=== PATIENT | female | born 1945 | race Caucasian/White ===

== ENCOUNTER 2016-09-26 12:06 | Emergency (ER) | payer MEDICARE ==
[2016-09-26] MEDS ORDERED: GLYCERIN ADULT SUPP As Ordered ONE (13:30)
[2016-09-26] MEDS ORDERED: MAGNESIUM CITRATE 300 ML BTL As Ordered ONE (13:30)
--- NOTE | 2016-09-26 13:37 | EDDOCDS ---
Nurse's Notes [facility] Name: Pennie Ward Age: 70 yrs Sex: Female : 1945 Arrival Date: 09/26/2016 Time: 12:06 Bed TR7 Private MD: Jenniffer Mullins PA-C Diagnosis: Constipation Presentation: 09/26 12:16 Presenting complaint: Patient states: c/o constipation, reports similar history. denies ead abdominal pain. Adult Sepsis Screening: The patient does not have new or worsening altered mentation. Patient's respiratory rate is less than 22. Systolic blood pressure is greater than 100. Patient has a qSOFA score of 0- Negative Sepsis Screen. Suicide/Homicide risk assessment- the patient denies having any suicidal and/or homicidal ideations and does not present with any other emotional, behavioral or mental health complaints. Status: Patient is not a environmental services specialist or dependent. Transition of care: patient was not received from another setting of care. 12:16 Acuity: MARGARITA Level 3 ead 12:16 Method Of Arrival: Walkin/Carried/Asstd ead Triage Assessment: 12:19 General: Appears in no apparent distress, comfortable, Behavior is appropriate for age, ead cooperative. Pain: Denies pain. GI: Reports constipation, Denies nausea, vomiting, pain. Derm: Skin is pink, warm & dry. Historical: - Allergies: no known allergies; - Home Meds: 1. Lipitor 20 mg Oral tab once daily 2. paroxetine HCl 37.5 mg Oral Tb24 once daily 3. pometate 15,000 daily 4. Vitamin C Unknown Oral daily 5. vitamin c & d daily - PMHx: Hypercholesterolemia; - PSHx: none; - Social history: Smoking status: Patient states was never smoker of tobacco. No barriers to communication noted, The patient speaks fluent Czech, Speaks appropriately for age. - Family history: Not pertinent. - : The pt / caregiver states he / she is not on anticoagulants. Home medication list is obtained from the patient. - Exposure Risk Screening:: None identified. Screenin:34 Screening information is obtained from the patient. Fall risk: No risks identified. rs3 Assistance ADL's: requires no assistance with activities of daily living. Abuse/DV Screen: The patient / caregiver reports he/she is: not in a situation that causes fear, pain or injury. Nutritional screening: No deficits noted. Advance Directives: Currently, there is no health care proxy. There is no active DNR order. home support is adequate. Assessment: 13:34 General: Appears in no apparent distress, Behavior is appropriate for age, cooperative. rs3 Pain: Denies pain. Neurological: Level of Consciousness is awake, alert. Cardiovascular: Capillary refill < 3 seconds Heart tones S1 S2 present. Respiratory: Airway is patent Respiratory effort is even, unlabored, Breath sounds are clear bilaterally. Derm: Skin is pink, warm & dry. Vital Signs: 12:07 BP 173 / 86; Pulse 68; Resp 18 S; Temp 97.1; Pulse Ox 100% on R/A; Weight 44 kg (R); dd6 Height 5 ft. 1 in. (154.94 cm) (R); 12:07 Body Mass Index 18.33 (44.00 kg, 154.94 cm) dd6 Vitals: 12:07 Log In Time: September 26, 2016 at 12:05. dd6 ED Course: 12:07 Patient visited by Tien Grimaldo PCA. dd6 12:07 Jenniffer Mullins is Private Physician. dd6 12:07 Patient moved to Waiting dd6 12:09 Patient moved to Pre RCE dd6 12:17 Triage Initiated ead 12:43 Patient moved to Triage 2 ead 12:46 Patient visited by Ese Dennis RN. ead 13:12 Richard Helm PA is PHCP. btw 13:12 Leroy Gardiner DO is Attending Physician. btw 13:12 Patient visited by Richard Helm PA. btw 13:22 Jenniffer Mullins is Referral Physician. btw 13:32 Patient moved to TR7 ar3 13:36 The patient / caregiver is instructed regarding the plan of care and ED course. rs3 13:36 No IV's were initiated during this patient's visit. No procedures done that require rs3 assistance. Administered Medications: 13:33 Drug: Glycerin (Adult) 2 supp [glycerin (adult) rectal suppository (2 supp)] Route: OK; rs3 13:33 Drug: Magnesium Citrate 300 ml [magnesium citrate oral solution (300 mL)] Route: PO; rs3 Order Results: There are currently no results for this order. Outcome: 13:23 Discharge ordered by Provider. btw 13:35 Discharge Assessment: patient administered narcotics - no. The following High Risk rs3 Discharge criteria are identified: None. Discharged to home with family. Condition: stable. Discharge instructions given to patient, Instructed on discharge instructions, follow up and referral plans. medication usage, Demonstrated understanding of instructions, medications, Pt was receptive of discharge instructions/ teaching. No special radiology studies were completed. Admission hand-off:. Property :Personal belongings accompany Pt. 13:36 Patient left the ED. rs3 Signatures: Tien Grimaldo, FILLING MIXER FILLING MIXER dd6 Stella HardinRN RN rs3 Eliane Saleh, FILLING MIXER FILLING MIXER ar3 Richard Helm PA PA btw Ese Dennis,RN RN gavinod IVANA
--- NOTE | 2016-09-26 13:37 | EDDOCDS ---
Physician Documentation [facility] Name: Pennie Ward Age: 70 yrs Sex: Female : 1945 Arrival Date: 09/26/2016 Time: 12:06 Bed TR7 Private MD: Jenniffer Mullins PA-C Disposition: 09/26/16 13:23 Discharged to Home/Self Care. Impression: Constipation. - Condition is Stable. - Discharge Instructions: High-Fiber Diet, Constipation, Adult, [id number]. - Medication Reconciliation, Local Pharmacy Hours form. - Follow up: Jenniffer Mullins; When: Call to arrange an appointment; Reason: Further diagnostic work-up, Recheck today's complaints, Continuance of care. - Problem is new. - Symptoms are unchanged. Historical: - Allergies: no known allergies; - Home Meds: 1. Lipitor 20 mg Oral tab once daily 2. paroxetine HCl 37.5 mg Oral Tb24 once daily 3. pometate 15,000 daily 4. Vitamin C Unknown Oral daily 5. vitamin c & d daily - PMHx: Hypercholesterolemia; - PSHx: none; - Social history: Smoking status: Patient states was never smoker of tobacco. No barriers to communication noted, The patient speaks fluent Citizen Of [place], Speaks appropriately for age. - Family history: Not pertinent. - : The pt / caregiver states he / she is not on anticoagulants. Home medication list is obtained from the patient. - Exposure Risk Screening:: None identified. Vital Signs: 09/26 12:07 BP 173 / 86; Pulse 68; Resp 18 S; Temp 97.1; Pulse Ox 100% on R/A; Weight 44 kg / 97 dd6 lbs (R); Height 5 ft. 1 in. (154.94 cm) (R); 12:07 Body Mass Index 18.33 (44.00 kg, 154.94 cm) dd6 MDM: 13:22 Glycerin (Adult) Suppository 2 supp VT once; To be used 10 minutes apart at home btw ordered. 13:22 Magnesium Citrate Liquid 300 ml PO once; Dispense home with pt. ordered. btw 13:34 Financial registration complete. pm4 Administered Medications: 13:33 Drug: Glycerin (Adult) 2 supp [glycerin (adult) rectal suppository (2 supp)] Route: VT; rs3 13:33 Drug: Magnesium Citrate 300 ml [magnesium citrate oral solution (300 mL)] Route: PO; rs3 Signatures: Stella Hardin RN RN rs3 Richard Helm PA PA btw Dunaway, Emily, RN RN ead Maikel Marina, Reg Reg pm4 MTDD
--- NOTE | 2016-09-28 14:37 | EDDOCDS ---
Physician Documentation [facility] Name: Pennie Ward Age: 70 yrs Sex: Female : 1945 Arrival Date: 09/26/2016 Time: 12:06 Bed TR7 Private MD: Jenniffer Mullins PA-C Disposition: 09/26/16 13:23 Discharged to Home/Self Care. Impression: Constipation. - Condition is Stable. - Discharge Instructions: High-Fiber Diet, Constipation, Adult, [id number]. - Medication Reconciliation, Local Pharmacy Hours form. - Follow up: Jenniffer Mullins; When: Call to arrange an appointment; Reason: Further diagnostic work-up, Recheck today's complaints, Continuance of care. - Problem is new. - Symptoms are unchanged. Historical: - Allergies: no known allergies; - Home Meds: 1. Lipitor 20 mg Oral tab once daily 2. paroxetine HCl 37.5 mg Oral Tb24 once daily 3. pometate 15,000 daily 4. Vitamin C Unknown Oral daily 5. vitamin c & d daily - PMHx: Hypercholesterolemia; - PSHx: none; - Social history: Smoking status: Patient states was never smoker of tobacco. No barriers to communication noted, The patient speaks fluent Northern Irish, Speaks appropriately for age. - Family history: Not pertinent. - : The pt / caregiver states he / she is not on anticoagulants. Home medication list is obtained from the patient. - Exposure Risk Screening:: None identified. Vital Signs: 09/26 12:07 BP 173 / 86; Pulse 68; Resp 18 S; Temp 97.1; Pulse Ox 100% on R/A; Weight 44 kg / 97 dd6 lbs (R); Height 5 ft. 1 in. (154.94 cm) (R); 12:07 Body Mass Index 18.33 (44.00 kg, 154.94 cm) dd6 MDM: 13:22 Glycerin (Adult) Suppository 2 supp NE once; To be used 10 minutes apart at home btw ordered. 13:22 Magnesium Citrate Liquid 300 ml PO once; Dispense home with pt. ordered. btw 13:34 Financial registration complete. pm4 13:55 [facility] Payment Agreement was scanned into [employer] and attached to record. mm15 09/27 08:03 T-Sheet-- Draft Copy was scanned into [employer] and attached to record. gb Administered Medications: 09/26 13:33 Drug: Glycerin (Adult) 2 supp [glycerin (adult) rectal suppository (2 supp)] Route: NE; rs3 13:33 Drug: Magnesium Citrate 300 ml [magnesium citrate oral solution (300 mL)] Route: PO; rs3 Signatures: Aster Sampson, Reg Reg gb Stella Hardin RN RN rs3 Richard Helm PA PA btw McGrath, Marlynn mm15 Ese Dennis RN RN ead Maikel Marina, Reg Reg pm4 The chart was reviewed and I authenticate all verbal orders and agree with the evaluation and treatment provided.Attachments: 13:55 [facility] Payment Agreement mm15 09/27 08:03 T-Sheet-- Draft Copy gb Chart Complete MTDD
--- NOTE | 2016-09-28 14:37 | EDDOCDS ---
Physician Documentation [facility] Name: Pennie Ward Age: 70 yrs Sex: Female : 1945 Arrival Date: 09/26/2016 Time: 12:06 Bed TR7 Private MD: Jenniffer Mullins PA-C Disposition: 09/26/16 13:23 Discharged to Home/Self Care. Impression: Constipation. - Condition is Stable. - Discharge Instructions: High-Fiber Diet, Constipation, Adult, [id number]. - Medication Reconciliation, Local Pharmacy Hours form. - Follow up: Jenniffer Mullins; When: Call to arrange an appointment; Reason: Further diagnostic work-up, Recheck today's complaints, Continuance of care. - Problem is new. - Symptoms are unchanged. Historical: - Allergies: no known allergies; - Home Meds: 1. Lipitor 20 mg Oral tab once daily 2. paroxetine HCl 37.5 mg Oral Tb24 once daily 3. pometate 15,000 daily 4. Vitamin C Unknown Oral daily 5. vitamin c & d daily - PMHx: Hypercholesterolemia; - PSHx: none; - Social history: Smoking status: Patient states was never smoker of tobacco. No barriers to communication noted, The patient speaks fluent Panamanian, Speaks appropriately for age. - Family history: Not pertinent. - : The pt / caregiver states he / she is not on anticoagulants. Home medication list is obtained from the patient. - Exposure Risk Screening:: None identified. Vital Signs: 09/26 12:07 BP 173 / 86; Pulse 68; Resp 18 S; Temp 97.1; Pulse Ox 100% on R/A; Weight 44 kg / 97 dd6 lbs (R); Height 5 ft. 1 in. (154.94 cm) (R); 12:07 Body Mass Index 18.33 (44.00 kg, 154.94 cm) dd6 MDM: 13:22 Glycerin (Adult) Suppository 2 supp W[place] once; To be used 10 minutes apart at home btw ordered. 13:22 Magnesium Citrate Liquid 300 ml PO once; Dispense home with pt. ordered. btw 13:34 Financial registration complete. pm4 13:55 [facility] Payment Agreement was scanned into flo[employer]do and attached to record. mm15 09/27 08:03 T-Sheet-- Draft Copy was scanned into flo[employer]do and attached to record. gb Administered Medications: 09/26 13:33 Drug: Glycerin (Adult) 2 supp [glycerin (adult) rectal suppository (2 supp)] Route: [place]; rs3 13:33 Drug: Magnesium Citrate 300 ml [magnesium citrate oral solution (300 mL)] Route: PO; rs3 Signatures: Aster Sampson, Reg Reg gb Stella Hardin RN RN rs3 Richard Helm PA PA btw McGrath, Marlynn mm15 Ese Dennis RN RN ead Maikel Marina, Reg Reg pm4 The chart was reviewed and I authenticate all verbal orders and agree with the evaluation and treatment provided.Attachments: 13:55 [facility] Payment Agreement mm15 09/27 08:03 T-Sheet-- Draft Copy gb Chart Complete MTDD
--- NOTE | 2016-09-28 14:37 | EDDOCDS ---
Nurse's Notes [facility] Name: Pennie Ward Age: 70 yrs Sex: Female : 1945 Arrival Date: 09/26/2016 Time: 12:06 Bed TR7 Private MD: Jenniffer Mullins PA-C Diagnosis: Constipation Presentation: 09/26 12:16 Presenting complaint: Patient states: c/o constipation, reports similar history. denies ead abdominal pain. Adult Sepsis Screening: The patient does not have new or worsening altered mentation. Patient's respiratory rate is less than 22. Systolic blood pressure is greater than 100. Patient has a qSOFA score of 0- Negative Sepsis Screen. Suicide/Homicide risk assessment- the patient denies having any suicidal and/or homicidal ideations and does not present with any other emotional, behavioral or mental health complaints. Status: Patient is not a ambulatory services representative or dependent. Transition of care: patient was not received from another setting of care. 12:16 Acuity: MARGARITA Level 3 ead 12:16 Method Of Arrival: Walkin/Carried/Asstd ead Triage Assessment: 12:19 General: Appears in no apparent distress, comfortable, Behavior is appropriate for age, ead cooperative. Pain: Denies pain. GI: Reports constipation, Denies nausea, vomiting, pain. Derm: Skin is pink, warm & dry. Historical: - Allergies: no known allergies; - Home Meds: 1. Lipitor 20 mg Oral tab once daily 2. paroxetine HCl 37.5 mg Oral Tb24 once daily 3. pometate 15,000 daily 4. Vitamin C Unknown Oral daily 5. vitamin c & d daily - PMHx: Hypercholesterolemia; - PSHx: none; - Social history: Smoking status: Patient states was never smoker of tobacco. No barriers to communication noted, The patient speaks fluent Telugu, Speaks appropriately for age. - Family history: Not pertinent. - : The pt / caregiver states he / she is not on anticoagulants. Home medication list is obtained from the patient. - Exposure Risk Screening:: None identified. Screenin:34 Screening information is obtained from the patient. Fall risk: No risks identified. rs3 Assistance ADL's: requires no assistance with activities of daily living. Abuse/DV Screen: The patient / caregiver reports he/she is: not in a situation that causes fear, pain or injury. Nutritional screening: No deficits noted. Advance Directives: Currently, there is no health care proxy. There is no active DNR order. home support is adequate. Assessment: 13:34 General: Appears in no apparent distress, Behavior is appropriate for age, cooperative. rs3 Pain: Denies pain. Neurological: Level of Consciousness is awake, alert. Cardiovascular: Capillary refill < 3 seconds Heart tones S1 S2 present. Respiratory: Airway is patent Respiratory effort is even, unlabored, Breath sounds are clear bilaterally. Derm: Skin is pink, warm & dry. Vital Signs: 12:07 BP 173 / 86; Pulse 68; Resp 18 S; Temp 97.1; Pulse Ox 100% on R/A; Weight 44 kg (R); dd6 Height 5 ft. 1 in. (154.94 cm) (R); 12:07 Body Mass Index 18.33 (44.00 kg, 154.94 cm) dd6 Vitals: 12:07 Log In Time: September 26, 2016 at 12:05. dd6 ED Course: 12:07 Patient visited by Tien Grimaldo PCA. dd6 12:07 Jenniffer Mullins is Private Physician. dd6 12:07 Patient moved to Waiting dd6 12:09 Patient moved to Pre RCE dd6 12:17 Triage Initiated ead 12:43 Patient moved to Triage 2 ead 12:46 Patient visited by Ese Dennis RN. ead 13:12 Richard Helm PA is PHCP. btw 13:12 Leroy Gardiner DO is Attending Physician. btw 13:12 Patient visited by Richard Helm PA. btw 13:22 Jenniffer Mullins is Referral Physician. btw 13:32 Patient moved to TR7 ar3 13:36 The patient / caregiver is instructed regarding the plan of care and ED course. rs3 13:36 No IV's were initiated during this patient's visit. No procedures done that require rs3 assistance. 13:47 Patient name changed from Pennie\S\\S\Ed\S\ to Pennie\S\Maria Luisa\S\Ed. EDMS 13:55 [facility] Payment Agreement was scanned into [employer] and attached to record. mm15 09/27 08:03 T-Sheet-- Draft Copy was scanned into [employer] and attached to record. gb Administered Medications: 09/26 13:33 Drug: Glycerin (Adult) 2 supp [glycerin (adult) rectal suppository (2 supp)] Route: DC; rs3 13:33 Drug: Magnesium Citrate 300 ml [magnesium citrate oral solution (300 mL)] Route: PO; rs3 Order Results: There are currently no results for this order. Outcome: 13:23 Discharge ordered by Provider. btw 13:35 Discharge Assessment: patient administered narcotics - no. The following High Risk rs3 Discharge criteria are identified: None. Discharged to home with family. Condition: stable. Discharge instructions given to patient, Instructed on discharge instructions, follow up and referral plans. medication usage, Demonstrated understanding of instructions, medications, Pt was receptive of discharge instructions/ teaching. No special radiology studies were completed. Admission hand-off:. Property :Personal belongings accompany Pt. 13:36 Patient left the ED. rs3 Signatures: Dispatcher [employer] EDMS Aster Sampson, Reg Reg gb Tien Grimaldo, TELEVISION SCHEDULE COORDINATOR TELEVISION SCHEDULE COORDINATOR dd6 Stella Hardin,RN RN rs3 Eliane Saleh, TELEVISION SCHEDULE COORDINATOR TELEVISION SCHEDULE COORDINATOR ar3 Richard Helm PA PA btw Efrain Rivero mm15 Ese Dennis,RN RN gavinod Chart Complete MTDD
== END 2016-09-26 13:36 | disposition home or self-care (01) ==
LOC: M ED 12:06
DX: K59.00 Constipation, unspecified (principal); E78.00 Pure hypercholesterolemia, unspecified; Z79.899 Other long term (current) drug therapy

== ENCOUNTER 2016-09-29 23:21 | Emergency (ER) | payer MEDICARE ==
[~2016-09-29] VITALS: Ht 154.9 cm; Wt 45.8 kg
[2016-09-30] MEDS ORDERED: ANUSOL HC 25MG SUPP PR SCH (00:16)
--- NOTE | 2016-09-30 00:32 | EDDOCDS ---
Nurse's Notes [facility] Name: Pennie Ward Age: 70 yrs Sex: Female : 1945 Arrival Date: 09/29/2016 Time: 23:21 Bed 5 Private MD: Jenniffer Mullins PA-C Diagnosis: First degree hemorrhoids-non thrombosed;Rectal prolapse-described Presentation: 09/29 23:27 Presenting complaint: Patient states: Seen here on Monday and "you guys didn't do ld5 anything for me. I was told you didn't do anything for constipation and sent me home". Pt followed up with Dr. Stone and was told she has a prolapsed rectum. Pt reports it is currently out of her rectum and causing a lot of pain. Adult Sepsis Screening: The patient does not have new or worsening altered mentation. Patient's respiratory rate is less than 22. Systolic blood pressure is greater than 100. Patient has a qSOFA score of 0- Negative Sepsis Screen. Suicide/Homicide risk assessment- the patient denies having any suicidal and/or homicidal ideations and does not present with any other emotional, behavioral or mental health complaints. Status: Patient is not a service dismantler or dependent. Transition of care: patient was not received from another setting of care. 23:27 Acuity: MARGARITA Level 3 ld5 23:27 Method Of Arrival: Walkin/Carried/Asstd ld5 Triage Assessment: 23:30 General: Appears in no apparent distress. Pain: Quality of pain is described as "I'm ld5 not having pain. It's just uncomfortable". Neurological: Level of Consciousness is awake, alert. Respiratory: Airway is patent Respiratory effort is even, unlabored. GI: Reports hemorrhoids. Historical: - Allergies: no known allergies; - Home Meds: 1. Lipitor 20 mg Oral tab once daily 2. paroxetine HCl 37.5 mg Oral Tb24 once daily 3. pometate 15,000 daily 4. Vitamin C Oral daily 5. vitamin c & d daily - PMHx: Hypercholesterolemia; Prolapsed rectum; - PSHx: none; - Social history: Smoking status: Patient states was never smoker of tobacco. No barriers to communication noted, The patient speaks fluent Lithuanian, Speaks appropriately for age. - Family history: Not pertinent. - : The pt / caregiver states he / she is not on anticoagulants. Home medication list is obtained from the patient. - Exposure Risk Screening:: None identified. Screenin/13 00:29 Screening information is obtained from the patient. Fall risk: No risks identified. cf2 Assistance ADL's: requires no assistance with activities of daily living. Abuse/DV Screen: The patient / caregiver reports he/she is: not in a situation that causes fear, pain or injury. Nutritional screening: No deficits noted. Advance Directives: Further advance directive information is declined. home support is adequate. Assessment: 00:29 Reassessment: Patient appears in no apparent distress at this time. Patient denies pain cf2 at this time. Patient states feeling better. General: Appears in no apparent distress, comfortable, Behavior is appropriate for age, cooperative. Pain: Location: buttocks. Neurological: No deficits noted. EENT: No deficits noted. Cardiovascular: No deficits noted. Respiratory: No deficits noted. GI: No deficits noted. : No deficits noted. Derm: No deficits noted. Musculoskeletal: No deficits noted. Injury Description: No known injury. Vital Signs: 09/29 23:23 BP 161 / 65; Pulse 65; Resp 18 S; Temp 96.0(T); Pulse Ox 100% on R/A; Weight 45.81 kg gr2 (R); Height 5 ft. 1 in. (154.94 cm) (R); Pain 3/10; 23:23 Body Mass Index 19.08 (45.81 kg, 154.94 cm) gr2 Vitals: 23:23 Log In Time: September 29, 2016 at 23:23. gr2 ED Course: 23:23 Patient visited by Tyrel Gastelum. gr2 23:23 Jenniffer Mullins is Private Physician. gr2 23:23 Patient moved to Waiting gr2 23:25 Patient visited by Tyrel Gastelum. gr2 23:26 Patient moved to Pre RCE gr2 23:29 Triage Initiated ld5 23:31 Patient visited by Claudia Knowles RN. ld5 23:33 Leroy Gardiner DO is Attending Physician. cs11 23:33 Patient visited by Leroy Gardiner DO. cs11 23:33 Patient moved to [facility] 23:52 Familetti-Devaughn,Joanna,RN is Primary Nurse. cf2 23:52 Patient visited by Joanna Kaur RN. cf2 23:55 Amadeo Canas DO is Referral Physician. cs11 09/30 00:29 Patient visited by Joanna Kaur RN. cf2 00:29 The patient / caregiver is instructed regarding the plan of care and ED course. Patient cf2 has correct armband on for positive identification. Placed in gown. Bed in low position. Call light in reach. Side rails up X 1. Side rails up X2. Property :Personal belongings accompany Pt. Door closed. Noise minimized. Visitors limited. Lights dimmed. Moved to private room. Head of bed elevated. 00:29 No IV's were initiated during this patient's visit. No procedures done that require cf2 assistance. Administered Medications: 00:00 Drug: Anusol-HC Suppository 25 mg 1 supp Route: MO; cf2 00:29 Follow up: Response: No significant change. cf2 Order Results: There are currently no results for this order. Outcome: 09/29 23:57 Discharge ordered by Provider. 11 09/30 00:29 Discharge Assessment: Patient awake, alert and oriented x 3. No cognitive and/or cf2 functional deficits noted. Patient verbalized understanding of disposition instructions. Patient awake and alert. Oriented to person, place and time. patient administered narcotics - no. The following High Risk Discharge criteria are identified: None. Condition: good Condition: stable. No special radiology studies were completed. 00:31 Patient left the ED. cf2 Signatures: Brenden Trujillo RN RN cz Dickerson, Laura, RN RN ld5 Leroy Gardiner DO DO cs11 Tyrel Gastelum gr2 Joanna Kaur,GURDEEP RN cf2 MTDD
--- NOTE | 2016-09-30 00:32 | EDDOCDS ---
Physician Documentation [facility] Name: Pennie Ward Age: 70 yrs Sex: Female : 1945 Arrival Date: 09/29/2016 Time: 23:21 Bed 5 Private MD: Jenniffer Mullins PA-C Disposition: 09/29/16 23:57 Discharged to Home/Self Care. Impression: First degree hemorrhoids - non thrombosed, Rectal prolapse - described. - Condition is Stable. - Prescriptions for Anusol- HC 25 mg Rectal Suppository - insert 1 suppository by RECTAL route every 12 hours As needed; 20 suppository. - Medication Reconciliation, Local Pharmacy Hours form. - Follow up: Amadeo Canas DO; When: Call to arrange an appointment; Reason: Recheck today's complaints. - Problem is an ongoing problem. - Symptoms have improved. - Notes: you must eat a high fiber diet. Historical: - Allergies: no known allergies; - Home Meds: 1. Lipitor 20 mg Oral tab once daily 2. paroxetine HCl 37.5 mg Oral Tb24 once daily 3. pometate 15,000 daily 4. Vitamin C Oral daily 5. vitamin c & d daily - PMHx: Hypercholesterolemia; Prolapsed rectum; - PSHx: none; - Social history: Smoking status: Patient states was never smoker of tobacco. No barriers to communication noted, The patient speaks fluent Uzbek, Speaks appropriately for age. - Family history: Not pertinent. - : The pt / caregiver states he / she is not on anticoagulants. Home medication list is obtained from the patient. - Exposure Risk Screening:: None identified. Vital Signs: 09/29 23:23 BP 161 / 65; Pulse 65; Resp 18 S; Temp 96.0(T); Pulse Ox 100% on R/A; Weight 45.81 kg / gr2 100.99 lbs (R); Height 5 ft. 1 in. (154.94 cm) (R); Pain 3/10; 23:23 Body Mass Index 19.08 (45.81 kg, 154.94 cm) gr2 MDM: 23:49 Anusol-HC Suppository 25 mg 1 supp [place] now ordered. cs11 23:58 Financial registration complete. hs2 Administered Medications: 09/30 00:00 Drug: Anusol-HC Suppository 25 mg 1 supp Route: [place]; cf2 00:29 Follow up: Response: No significant change. cf2 Signatures: Claudia Knowles,GURDEEP RN ld5 Leroy Gardiner DO DO cs11 Chelly Lara, Reg Reg hs2 Joanna Kaur RN RN cf2 MTDD
--- NOTE | 2016-10-02 01:32 | EDDOCDS ---
Physician Documentation [facility] Name: Pennie Ward Age: 70 yrs Sex: Female : 1945 Arrival Date: 09/29/2016 Time: 23:21 Bed 5 Private MD: Jenniffer Mullins PA-C Disposition: 09/29/16 23:57 Discharged to Home/Self Care. Impression: First degree hemorrhoids - non thrombosed, Rectal prolapse - described. - Condition is Stable. - Prescriptions for Anusol- HC 25 mg Rectal Suppository - insert 1 suppository by RECTAL route every 12 hours As needed; 20 suppository. - Medication Reconciliation, Local Pharmacy Hours form. - Follow up: Amadeo Canas DO; When: Call to arrange an appointment; Reason: Recheck today's complaints. - Problem is an ongoing problem. - Symptoms have improved. - Notes: you must eat a high fiber diet. Historical: - Allergies: no known allergies; - Home Meds: 1. Lipitor 20 mg Oral tab once daily 2. paroxetine HCl 37.5 mg Oral Tb24 once daily 3. pometate 15,000 daily 4. Vitamin C Oral daily 5. vitamin c & d daily - PMHx: Hypercholesterolemia; Prolapsed rectum; - PSHx: none; - Social history: Smoking status: Patient states was never smoker of tobacco. No barriers to communication noted, The patient speaks fluent Arabic, Speaks appropriately for age. - Family history: Not pertinent. - : The pt / caregiver states he / she is not on anticoagulants. Home medication list is obtained from the patient. - Exposure Risk Screening:: None identified. Vital Signs: 09/29 23:23 BP 161 / 65; Pulse 65; Resp 18 S; Temp 96.0(T); Pulse Ox 100% on R/A; Weight 45.81 kg / gr2 100.99 lbs (R); Height 5 ft. 1 in. (154.94 cm) (R); Pain 3/10; 23:23 Body Mass Index 19.08 (45.81 kg, 154.94 cm) gr2 MDM: 23:49 Anusol-HC Suppository 25 mg 1 supp [place] now ordered. cs11 23:58 Financial registration complete. hs2 09/30 00:32 [facility] Payment Agreement was scanned into [employer] and attached to record. hs2 09:42 T-Sheet-- Draft Copy was scanned into [employer] and attached to record. gb Administered Medications: 00:00 Drug: Anusol-HC Suppository 25 mg 1 supp Route: [place]; cf2 00:29 Follow up: Response: No significant change. cf2 Signatures: Aster Sampson, Reg Reg gb Claudia KnowlesRN RN ld5 Leroy Gardiner DO DO cs11 Chelly Lara, Reg Reg hs2 Joanna Kaur RN RN cf2 The chart was reviewed and I authenticate all verbal orders and agree with the evaluation and treatment provided.Attachments: 00:32 [facility] Payment Agreement hs2 09:42 T-Sheet-- Draft Copy gb Chart Complete MTDD
--- NOTE | 2016-10-02 01:32 | EDDOCDS ---
Nurse's Notes [facility] Name: Pennie Ward Age: 70 yrs Sex: Female : 1945 Arrival Date: 09/29/2016 Time: 23:21 Bed 5 Private MD: Jenniffer Mullins PA-C Diagnosis: First degree hemorrhoids-non thrombosed;Rectal prolapse-described Presentation: 09/29 23:27 Presenting complaint: Patient states: Seen here on Monday and "you guys didn't do ld5 anything for me. I was told you didn't do anything for constipation and sent me home". Pt followed up with Dr. Stone and was told she has a prolapsed rectum. Pt reports it is currently out of her rectum and causing a lot of pain. Adult Sepsis Screening: The patient does not have new or worsening altered mentation. Patient's respiratory rate is less than 22. Systolic blood pressure is greater than 100. Patient has a qSOFA score of 0- Negative Sepsis Screen. Suicide/Homicide risk assessment- the patient denies having any suicidal and/or homicidal ideations and does not present with any other emotional, behavioral or mental health complaints. Status: Patient is not a service aide or dependent. Transition of care: patient was not received from another setting of care. 23:27 Acuity: MARGARITA Level 3 ld5 23:27 Method Of Arrival: Walkin/Carried/Asstd ld5 Triage Assessment: 23:30 General: Appears in no apparent distress. Pain: Quality of pain is described as "I'm ld5 not having pain. It's just uncomfortable". Neurological: Level of Consciousness is awake, alert. Respiratory: Airway is patent Respiratory effort is even, unlabored. GI: Reports hemorrhoids. Historical: - Allergies: no known allergies; - Home Meds: 1. Lipitor 20 mg Oral tab once daily 2. paroxetine HCl 37.5 mg Oral Tb24 once daily 3. pometate 15,000 daily 4. Vitamin C Oral daily 5. vitamin c & d daily - PMHx: Hypercholesterolemia; Prolapsed rectum; - PSHx: none; - Social history: Smoking status: Patient states was never smoker of tobacco. No barriers to communication noted, The patient speaks fluent Sinhala, Speaks appropriately for age. - Family history: Not pertinent. - : The pt / caregiver states he / she is not on anticoagulants. Home medication list is obtained from the patient. - Exposure Risk Screening:: None identified. Screenin/13 00:29 Screening information is obtained from the patient. Fall risk: No risks identified. cf2 Assistance ADL's: requires no assistance with activities of daily living. Abuse/DV Screen: The patient / caregiver reports he/she is: not in a situation that causes fear, pain or injury. Nutritional screening: No deficits noted. Advance Directives: Further advance directive information is declined. home support is adequate. Assessment: 00:29 Reassessment: Patient appears in no apparent distress at this time. Patient denies pain cf2 at this time. Patient states feeling better. General: Appears in no apparent distress, comfortable, Behavior is appropriate for age, cooperative. Pain: Location: buttocks. Neurological: No deficits noted. EENT: No deficits noted. Cardiovascular: No deficits noted. Respiratory: No deficits noted. GI: No deficits noted. : No deficits noted. Derm: No deficits noted. Musculoskeletal: No deficits noted. Injury Description: No known injury. Vital Signs: 09/29 23:23 BP 161 / 65; Pulse 65; Resp 18 S; Temp 96.0(T); Pulse Ox 100% on R/A; Weight 45.81 kg gr2 (R); Height 5 ft. 1 in. (154.94 cm) (R); Pain 3/10; 23:23 Body Mass Index 19.08 (45.81 kg, 154.94 cm) gr2 Vitals: 23:23 Log In Time: September 29, 2016 at 23:23. gr2 ED Course: 23:23 Patient visited by Tyrel Gastelum. gr2 23:23 Jenniffer Mullins is Private Physician. gr2 23:23 Patient moved to Waiting gr2 23:25 Patient visited by Tyrel Gastelum. gr2 23:26 Patient moved to Pre RCE gr2 23:29 Triage Initiated ld5 23:31 Patient visited by Claudia Knowles RN. ld5 23:33 Leroy Gardiner DO is Attending Physician. cs11 23:33 Patient visited by Leroy Gardiner DO. cs11 23:33 Patient moved to [facility] 23:52 Familetti-Devaughn,Joanna,RN is Primary Nurse. cf2 23:52 Patient visited by Joanna Kaur RN. cf2 23:55 Amadeo Canas DO is Referral Physician. cs11 09/30 00:29 Patient visited by Joanna Kaur RN. cf2 00:29 The patient / caregiver is instructed regarding the plan of care and ED course. Patient cf2 has correct armband on for positive identification. Placed in gown. Bed in low position. Call light in reach. Side rails up X 1. Side rails up X2. Property :Personal belongings accompany Pt. Door closed. Noise minimized. Visitors limited. Lights dimmed. Moved to private room. Head of bed elevated. 00:29 No IV's were initiated during this patient's visit. No procedures done that require cf2 assistance. 00:32 [facility] Payment Agreement was scanned into [employer] and attached to record. hs2 09:42 T-Sheet-- Draft Copy was scanned into [employer] and attached to record. gb Administered Medications: 00:00 Drug: Anusol-HC Suppository 25 mg 1 supp Route: [place]; cf2 00:29 Follow up: Response: No significant change. cf2 Order Results: There are currently no results for this order. Outcome: 09/29 23:57 Discharge ordered by Provider. cs11 09/30 00:29 Discharge Assessment: Patient awake, alert and oriented x 3. No cognitive and/or cf2 functional deficits noted. Patient verbalized understanding of disposition instructions. Patient awake and alert. Oriented to person, place and time. patient administered narcotics - no. The following High Risk Discharge criteria are identified: None. Condition: good Condition: stable. No special radiology studies were completed. 00:31 Patient left the ED. cf2 Signatures: Brenden Trujillo, RN GURDEEP cz Aster Sampson, Reg Reg gb Claudia Knowles RN RN ld5 Leroy Gardiner DO DO cs11 Tyrel Gastelum 2 Chelyl Lara, Reg Reg hs2 Joanna Kaur RN RN cf2 Chart Complete MTDD
--- NOTE | 2016-10-02 01:32 | EDDOCDS ---
Physician Documentation [facility] Name: Pennie Ward Age: 70 yrs Sex: Female : 1945 Arrival Date: 09/29/2016 Time: 23:21 Bed 5 Private MD: Jenniffer Mullins PA-C Disposition: 09/29/16 23:57 Discharged to Home/Self Care. Impression: First degree hemorrhoids - non thrombosed, Rectal prolapse - described. - Condition is Stable. - Prescriptions for Anusol- HC 25 mg Rectal Suppository - insert 1 suppository by RECTAL route every 12 hours As needed; 20 suppository. - Medication Reconciliation, Local Pharmacy Hours form. - Follow up: Amadeo Canas DO; When: Call to arrange an appointment; Reason: Recheck today's complaints. - Problem is an ongoing problem. - Symptoms have improved. - Notes: you must eat a high fiber diet. Historical: - Allergies: no known allergies; - Home Meds: 1. Lipitor 20 mg Oral tab once daily 2. paroxetine HCl 37.5 mg Oral Tb24 once daily 3. pometate 15,000 daily 4. Vitamin C Oral daily 5. vitamin c & d daily - PMHx: Hypercholesterolemia; Prolapsed rectum; - PSHx: none; - Social history: Smoking status: Patient states was never smoker of tobacco. No barriers to communication noted, The patient speaks fluent Maltese, Speaks appropriately for age. - Family history: Not pertinent. - : The pt / caregiver states he / she is not on anticoagulants. Home medication list is obtained from the patient. - Exposure Risk Screening:: None identified. Vital Signs: 09/29 23:23 BP 161 / 65; Pulse 65; Resp 18 S; Temp 96.0(T); Pulse Ox 100% on R/A; Weight 45.81 kg / gr2 100.99 lbs (R); Height 5 ft. 1 in. (154.94 cm) (R); Pain 3/10; 23:23 Body Mass Index 19.08 (45.81 kg, 154.94 cm) gr2 MDM: 23:49 Anusol-HC Suppository 25 mg 1 supp [place] now ordered. cs11 23:58 Financial registration complete. hs2 09/30 00:32 [facility] Payment Agreement was scanned into [employer] and attached to record. hs2 09:42 T-Sheet-- Draft Copy was scanned into [employer] and attached to record. gb Administered Medications: 00:00 Drug: Anusol-HC Suppository 25 mg 1 supp Route: [place]; cf2 00:29 Follow up: Response: No significant change. cf2 Signatures: Aster Sampson, Reg Reg gb Claudia KnowlesRN RN ld5 Leroy Gardiner DO DO cs11 Chelly Lara, Reg Reg hs2 Joanna Kaur RN RN cf2 The chart was reviewed and I authenticate all verbal orders and agree with the evaluation and treatment provided.Attachments: 00:32 [facility] Payment Agreement hs2 09:42 T-Sheet-- Draft Copy gb Chart Complete MTDD
== END 2016-09-30 00:31 | disposition home or self-care (01) ==
LOC: M ED 23:21
DX: K64.4 Residual hemorrhoidal skin tags (principal); K62.3 Rectal prolapse; E78.5 Hyperlipidemia, unspecified; F32.9 Major depressive disorder, single episode, unspecified; E78.00 Pure hypercholesterolemia, unspecified; Z79.899 Other long term (current) drug therapy

== ENCOUNTER → 2017-01-25 | Outpatient (REF) | payer MEDICARE ==
[2017-01-25 20:52] LABS: ALT/SGPT 32 U/L (12-78); AST/SGOT 23 U/L (15-37)
== END ==
LOC: M LABDRWAD 09:52
PROVIDERS: ATTEND Ophthalmology
DX: H35.52 Pigmentary retinal dystrophy (principal)

== ENCOUNTER → 2017-10-12 | Outpatient (REF) | payer MEDICARE ==
[2017-10-12 14:50] LABS: HEMATOCRIT 41.7 % (36.0-47.0); HEMOGLOBIN 13.6 g/dl (12.0-16.0); MEAN CORPUSCULAR HEMOGLOBIN 28.4 pg (27.0-33.0); MEAN CORPUSCULAR HGB CONC 32.6 g/dl (32.0-36.5); MEAN CORPUSCULAR VOLUME 87.1 fl (80.0-96.0); PLATELET COUNT, AUTOMATED 287 10^3/uL (150-450); RED BLOOD COUNT 4.79 10^6/uL (4.00-5.40); RED CELL DISTRIBUTION WIDTH 12.8 % (11.5-14.5); WHITE BLOOD COUNT 6.8 10^3/uL (4.0-10.0)
[2017-10-12 15:06] LABS: TOTAL 25(OH) VITAMIN D 14.1 NG/ML (30.0-100.0)
[2017-10-12 15:08] LABS: ALBUMIN 4.5 GM/DL (3.2-5.2); ALBUMIN/GLOBULIN RATIO 1.29 (1.00-1.93); ALKALINE PHOSPHATASE 87 U/L (45-117); ALT/SGPT 55 U/L (12-78); ANION GAP 8 MEQ/L (8-16); AST/SGOT 30 U/L (7-37); BILIRUBIN,TOTAL 0.8 MG/DL (0.2-1.0); BLOOD UREA NITROGEN 23 MG/DL (7-18); CALCIUM LEVEL 9.9 MG/DL (8.8-10.2); CARBON DIOXIDE LEVEL 31 MEQ/L (21-32); CHLORIDE LEVEL 100 MEQ/L (98-107); CHOLESTEROL LEVEL 188 MG/DL (<200); CHOLESTEROL RISK RATIO 2.506 (<5); CREATININE FOR GFR 1.08 MG/DL (0.55-1.02); GLOMERULAR FILTRATION RATE 53.4 (>39); GLUCOSE, FASTING 73 MG/DL (70-100); HDL CHOLESTEROL 75 MG/DL (>40); LDL CHOLESTEROL 90.6 MG/DL (<100); NON-HDL-C 113 MG/DL; POTASSIUM SERUM 3.8 MEQ/L (3.5-5.1); SODIUM LEVEL 139 MEQ/L (136-145); TRIGLYCERIDES LEVEL 112 MG/DL (<150)
== END ==
LOC: M SFHCADAM 08:41
DX: E78.4 Other hyperlipidemia (principal); E55.9 Vitamin D deficiency, unspecified; Z23 Encounter for immunization
CPT/HCPCS: 80053

== ENCOUNTER → 2017-11-02 | Outpatient (CLI) | payer MEDICARE | LOC: M WHC 10:15 | DX: Z12.31 Encounter for screening mammogram for malignant neoplasm of breast (principal) | CPT/HCPCS: 77067 ==

== ENCOUNTER → 2018-04-09 | Outpatient (CLI) | payer MEDICARE ==
[2018-04-09 15:54] LABS: ALT/SGPT 30 U/L (12-78)
[2018-04-09 15:54] LABS: AST/SGOT 18 U/L (7-37)
== END ==
LOC: M LAB 14:39
DX: H35.52 Pigmentary retinal dystrophy (principal)
CPT/HCPCS: 84460

== ENCOUNTER → 2018-10-24 | Outpatient (CLI) | payer MEDICARE ==
--- NOTE | 2018-10-24 17:11 | REP ---
Partial left knee two views History: Pain There is no acute fracture or dislocation. The joint spaces are normal in appearance. Impression: There is no acute fracture or dislocation. Electronically Signed by Israel Nunez MD 10/24/2018 05:03 P
--- NOTE | 2018-10-24 17:13 | REP ---
AP lateral left tibia-fibula two views History: Pain There is no acute fracture or dislocation. The joint spaces are normal in appearance. Impression: There is no acute fracture or dislocation. Electronically Signed by Israel Nunez MD 10/24/2018 05:04 P
== END ==
LOC: M ADAMS 16:43
PROVIDERS: ATTEND Physician Assistant
DX: M25.562 Pain in left knee (principal)

== ENCOUNTER → 2018-10-24 | Outpatient (REF) | payer MEDICARE ==
[2018-10-24 19:43] LABS: HEMOGLOBIN 13.6 g/dl (12.0-15.5); MEAN CORPUSCULAR HEMOGLOBIN 28.9 pg (27.0-33.0); MEAN CORPUSCULAR HGB CONC 32.4 g/dl (32.0-36.5); MEAN CORPUSCULAR VOLUME 89.4 fl (80.0-96.0); PLATELET COUNT, AUTOMATED 246 10^3/uL (150-450); WHITE BLOOD COUNT 5.9 10^3/uL (4.0-10.0)
[2018-10-24 20:01] LABS: ALBUMIN 4.1 GM/DL (3.2-5.2); ALT/SGPT 39 U/L (12-78); BILIRUBIN,TOTAL 0.4 MG/DL (0.2-1.0); BLOOD UREA NITROGEN 23 MG/DL (7-18); CALCIUM LEVEL 9.5 MG/DL (8.8-10.2); CARBON DIOXIDE LEVEL 32 MEQ/L (21-32); CHLORIDE LEVEL 102 MEQ/L (98-107); CHOLESTEROL LEVEL 160 MG/DL (<200); CHOLESTEROL RISK RATIO 2.622 (<5); CREATININE FOR GFR 0.91 MG/DL (0.55-1.30); FREE T4 1.12 NG/DL (0.76-1.46); GLOMERULAR FILTRATION RATE > 60.0 (>39); GLUCOSE, FASTING 86 MG/DL (70-100); HDL CHOLESTEROL 61 MG/DL (>40); LDL CHOLESTEROL 71 MG/DL (<100); NON-HDL-C 99 MG/DL; SODIUM LEVEL 139 MEQ/L (136-145); TOTAL 25(OH) VITAMIN D 33.8 NG/ML (30.0-100.0); TOTAL PROTEIN 7.2 GM/DL (6.4-8.2); TRIGLYCERIDES LEVEL 142 MG/DL (<150)
== END ==
LOC: M SFHCADAM 16:40
PROVIDERS: ATTEND Physician Assistant
DX: E55.9 Vitamin D deficiency, unspecified (principal); F41.9 Anxiety disorder, unspecified; E78.49 Other hyperlipidemia; M81.0 Age-related osteoporosis without current pathological fracture; M25.562 Pain in left knee
CPT/HCPCS: 73560; 73590; 80053; 80061; 82306; 84439; 84443; 85027; G0463

== ENCOUNTER → 2018-11-06 | Outpatient (CLI) | payer MEDICARE ==
--- NOTE | 2018-11-06 16:18 | REPMRS ---
Patient History The patient states she has not had a clinical breast exam in over a year. Family history of endometrial cancer in sister. Digital Woman Screen Mammo: November 06, 2018 - Exam #: [id number] Bilateral CC and MLO view(s) were taken. Technologist: Ngozi Alba, Technologist Prior study comparison: November 02, 2017, digital woman screen mammo performed at [facility]. September 02, 2016, digital woman screen mammo performed at [facility] to [facility]. FINDINGS: The breast tissue is extremely dense which could obscure a lesion on mammography. There has been no change in the appearance of the mammogram from the prior studies. There is a moderate amount of residual fibroglandular tissue which is fairly symmetric. There is no interval development of dominant mass, architectural distortion, or clustered microcalcification typical of malignancy. There are bilateral benign arterial calcifications noted. There are scattered, small, benign calcifications of doubtful clinical significance. 3-D tomosynthesis shows no additional findings. The patient's Tyrer-Cuzick lifetime risk assessment score is 4.6 %. No significant changes when compared with prior studies. Assessment: BI-RADS/ACR category 2 mammogram. Benign Findings. Recommendation Routine screening mammogram in 1 year (for women over age 40). This mammogram was interpreted with the aid of an FDA-approved computer-aided dectection system. A. Negative x-ray reports should not delay biopsy if a dominant or clinically suspicious mass is present. B. Four to eight percent of cancers are not identified by mammography. C. Adenosis and dense breast may obscure an underlying neoplasm. Electronically Signed By: Antonio Hudson MD 11/06/18 [id number]
== END ==
LOC: M WHC 11:07
PROVIDERS: ATTEND Physician Assistant
DX: Z12.31 Encounter for screening mammogram for malignant neoplasm of breast (principal); Z80.49 Family history of malignant neoplasm of other genital organs

== ENCOUNTER → 2019-07-02 | Outpatient (CLI) | payer MEDICARE ==
[2019-07-02 16:11] LABS: ALBUMIN 3.8 GM/DL (3.2-5.2); BILIRUBIN,DIRECT 0.2 MG/DL (0.0-0.2); BILIRUBIN,TOTAL 0.6 MG/DL (0.2-1.0); TOTAL PROTEIN 7.1 GM/DL (6.4-8.2)
== END ==
LOC: M LAB 14:33
PROVIDERS: ATTEND Ophthalmology
DX: H47.213 Primary optic atrophy, bilateral (principal)

== ENCOUNTER → 2020-01-23 | Outpatient (REF) | payer MEDICARE ==
[2020-01-23 17:43] LABS: HEMATOCRIT 40.4 % (36.0-47.0); HEMOGLOBIN 12.9 g/dl (12.0-15.5); MEAN CORPUSCULAR HEMOGLOBIN 28.5 pg (27.0-33.0); MEAN CORPUSCULAR HGB CONC 31.9 g/dl (32.0-36.5); MEAN CORPUSCULAR VOLUME 89.2 fl (80.0-96.0); PLATELET COUNT, AUTOMATED 291 10^3/uL (150-450); RED BLOOD COUNT 4.53 10^6/uL (4.00-5.40); WHITE BLOOD COUNT 6.8 10^3/uL (4.0-10.0)
[2020-01-23 18:14] LABS: ALBUMIN 3.7 GM/DL (3.2-5.2); ALT/SGPT 33 U/L (12-78); BILIRUBIN,TOTAL 0.6 MG/DL (0.2-1.0); BLOOD UREA NITROGEN 22 MG/DL (7-18); CALCIUM LEVEL 9.5 MG/DL (8.8-10.2); CARBON DIOXIDE LEVEL 32 MEQ/L (21-32); CHLORIDE LEVEL 104 MEQ/L (98-107); CHOLESTEROL LEVEL 150 MG/DL (<200); CHOLESTEROL RISK RATIO 2.631 (<5); CREATININE FOR GFR 0.86 MG/DL (0.55-1.30); FREE T4 1.11 NG/DL (0.76-1.46); GLOMERULAR FILTRATION RATE > 60.0 (>39); GLUCOSE, FASTING 86 MG/DL (70-100); HDL CHOLESTEROL 57 MG/DL (>40); LDL CHOLESTEROL 69 MG/DL (<100); NON-HDL-C 93 MG/DL; POTASSIUM SERUM 4.6 MEQ/L (3.5-5.1); SODIUM LEVEL 140 MEQ/L (136-145); TOTAL 25(OH) VITAMIN D 25.1 NG/ML (30.0-100.0); TRIGLYCERIDES LEVEL 119 MG/DL (<150)
== END ==
LOC: M SFHCADAM 13:59
PROVIDERS: ATTEND Physician Assistant
DX: R19.7 Diarrhea, unspecified (principal); E78.00 Pure hypercholesterolemia, unspecified; E55.9 Vitamin D deficiency, unspecified
CPT/HCPCS: 80053; 80061; 82306; 84439; 84443; 85027; G0463

== ENCOUNTER → 2020-02-06 | Outpatient (CLI) | payer MEDICARE ==
--- NOTE | 2020-02-06 15:15 | REPMRS ---
Patient History The patient states she has not had a clinical breast exam in over a year. Family history of endometrial cancer in sister. Digital Woman Screen Mammo: February 06, 2020 - Exam #: [id number] Bilateral CC and MLO view(s) were taken. Technologist: Slime Mobley, Technologist Prior study comparison: November 06, 2018, bilateral digital woman screen mammo performed at [facility]. November 02, 2017, digital woman screen mammo performed at [facility]. September 02, 2016, digital woman screen mammo performed at [facility]. FINDINGS: The breast tissue is extremely dense which could obscure a lesion on mammography. The Volpara volumetric breast density category is: D. There is an extremely dense symmetrical pattern of residual fibroglandular tissue. There has been no change in the appearance of the mammogram from the previous studies. There is no interval development of dominant mass, archetectural distortion, or grouped microcalcifications suggestive of malignancy. 3-D tomosynthesis shows no additional findings. Assessment: BI-RADS/ACR category 1 mammogram. Negative Mammogram. Recommendation Routine screening mammogram of both breasts in 1 year (for women over age 40). This patient's Lifetime Breast Cancer RIsk is estimated at 4.3 %. This mammogram was interpreted with the aid of an FDA-approved computer-aided dectection system. Electronically Signed By: Mika Forte MD 02/06/20 2152
== END ==
LOC: M WHC 14:15
PROVIDERS: ATTEND Physician Assistant
DX: Z12.31 Encounter for screening mammogram for malignant neoplasm of breast (principal); Z80.49 Family history of malignant neoplasm of other genital organs

== ENCOUNTER → 2020-03-16 | Outpatient (CLI) | payer MEDICARE ==
[~2020-03-16] MED LIST: LIPI20TA PO; PARO37.54 PO; VITAD1000T PO; [UNRECOGNIZED DRUG - CODE] PO
== END ==
LOC: M LABSMTC 09:48
PROVIDERS: ATTEND Anesthesiology
DX: Z01.818 Encounter for other preprocedural examination (principal); Z11.59 Encounter for screening for other viral diseases
CPT/HCPCS: C9803; U0003

== ENCOUNTER 2020-03-19 09:49 | Day surgery (SDC) | payer MEDICARE ==
[~2020-03-19] VITALS: Ht 154.9 cm; Wt 44.8 kg
[~2020-03-19 09:49] MED LIST changes: +D31000TA2 PO; +NS 1,000 ML IV ONE; -VITAD1000T PO; +propofoL 200 MG/20 ML VIAL As Ordered ONE
--- NOTE | 2020-03-19 12:09 | ROOR ---
Patient Name: Pennie Ward Procedure Date: 03/19/2020 11:39 AM Date of : 1945 Age: 74 Room: [facility] Gender: Female Note Status: Finalized Procedure: Colonoscopy Indications: Screening for colorectal malignant neoplasm, Last colonoscopy: March 2010 Providers: Rosales Donovan MD Referring MD: GRUPO Marquez Requesting Provider: Medicines: Monitored Anesthesia Care Complications: No immediate complications. Procedure: Pre-Anesthesia Assessment: - Prior to the procedure, a History and Physical was performed, and patient medications and allergies were reviewed. The patient is competent. The risks and benefits of the procedure and the sedation options and risks were discussed with the patient. All questions were answered and informed consent was obtained. Patient identification and proposed procedure were verified by the physician, the nurse and the professor of social work in the procedure room. Mental Status Examination: alert and oriented. Airway Examination: normal oropharyngeal airway and neck mobility. Prophylactic Antibiotics: The patient does not require prophylactic antibiotics. Prior Anticoagulants: The patient has taken no previous anticoagulant or antiplatelet agents. ASA Grade Assessment: II - A patient with mild systemic disease. After reviewing the risks and benefits, the patient was deemed in satisfactory condition to undergo the procedure. The anesthesia plan was to use monitored anesthesia care (MAC). Immediately prior to administration of medications, the patient was re-assessed for adequacy to receive sedatives. The heart rate, respiratory rate, oxygen saturations, blood pressure, adequacy of pulmonary ventilation, and response to care were monitored throughout the procedure. The physical status of the patient was re-assessed after the procedure. The Colonoscope was introduced through the anus and advanced to the cecum, identified by the appendiceal orifice. The colonoscopy was performed without difficulty. The patient tolerated the procedure well. The quality of the bowel preparation was good. Findings: The perianal and digital rectal examinations were normal. The colon (entire examined portion) appeared normal. A localized area of moderately congested, erythematous and inflamed mucosa was found in the distal rectum. Impression: - The entire examined colon is normal. - Congested, erythematous and inflamed mucosa in the distal rectum. - No specimens collected. Recommendation: - Discharge patient to home. - Resume previous diet. - Continue present medications. - Repeat colonoscopy in 10 years for screening purposes. Rosales Donovan MD Rosales Donovan MD 03/19/2020 12:08:50 PM Electronically signed by Rosales Donovan MD Number of Addenda: 0 Note Initiated On: 03/19/2020 11:39 AM Estimated Blood Loss: Estimated blood loss: none.
[2020-03-19 12:25] VITALS: BP 114/56
== END 2020-03-19 12:39 | disposition home or self-care (01) ==
LOC: M OPP 09:49
PROVIDERS: ATTEND Surgery
DX: Z12.11 Encounter for screening for malignant neoplasm of colon (principal); Z79.899 Other long term (current) drug therapy

== ENCOUNTER → 2021-03-30 | Outpatient (REF) | payer MEDICARE ==
[~2021-03-30] MED LIST changes: -NS 1,000 ML IV ONE; -PARO37.54 PO; +PARO37.55 PO; -propofoL 200 MG/20 ML VIAL As Ordered ONE
== END ==
LOC: M SFHCADAM 09:36
PROVIDERS: ATTEND Physician Assistant
DX: M81.0 Age-related osteoporosis without current pathological fracture (principal); E55.9 Vitamin D deficiency, unspecified; E78.00 Pure hypercholesterolemia, unspecified; Z12.39 Encounter for other screening for malignant neoplasm of breast

== ENCOUNTER → 2021-04-16 | Outpatient (REF) | payer MEDICARE ==
[~2021-04-16] MED LIST changes: +PARO37.54 PO; -PARO37.55 PO
[2021-04-16 12:59] LABS: HEMATOCRIT 39.6 % (36.0-47.0); HEMOGLOBIN 12.8 g/dl (12.0-15.5); MEAN CORPUSCULAR HEMOGLOBIN 29.1 pg (27.0-33.0); MEAN CORPUSCULAR HGB CONC 32.3 g/dl (32.0-36.5); PLATELET COUNT, AUTOMATED 221 10^3/uL (150-450)
[2021-04-16 13:42] LABS: ALBUMIN 3.7 GM/DL (3.2-5.2); ALT/SGPT 54 U/L (12-78); BILIRUBIN,TOTAL 0.6 MG/DL (0.2-1.0); BLOOD UREA NITROGEN 22 MG/DL (7-18); CARBON DIOXIDE LEVEL 32 MEQ/L (21-32); CHLORIDE LEVEL 106 MEQ/L (98-107); CHOLESTEROL LEVEL 167 MG/DL (<200); CHOLESTEROL RISK RATIO 2.783 (<5); CREATININE FOR GFR 0.94 MG/DL (0.55-1.30); FREE T4 0.96 NG/DL (0.76-1.46); GLOMERULAR FILTRATION RATE > 60.0 (>39); GLUCOSE, FASTING 89 MG/DL (70-100); HDL CHOLESTEROL 60 MG/DL (>40); LDL CHOLESTEROL 85 MG/DL (<100); NON-HDL-C 107 MG/DL; POTASSIUM SERUM 4.6 MEQ/L (3.5-5.1); SODIUM LEVEL 141 MEQ/L (136-145); TOTAL 25(OH) VITAMIN D 26.8 NG/ML (30.0-100.0); TOTAL PROTEIN 6.8 GM/DL (6.4-8.2); TRIGLYCERIDES LEVEL 110 MG/DL (<150)
== END ==
LOC: M SFHCADAM 08:19
PROVIDERS: ATTEND Physician Assistant
DX: M81.0 Age-related osteoporosis without current pathological fracture (principal); E55.9 Vitamin D deficiency, unspecified; E78.00 Pure hypercholesterolemia, unspecified; Z12.39 Encounter for other screening for malignant neoplasm of breast

== ENCOUNTER → 2021-04-30 | Outpatient (CLI) | payer MEDICARE ==
--- NOTE | 2021-04-30 14:26 | DEXAMM ---
INDICATION: M[age] AGE REL OSTEOPOROSIS W/O FX. COMPARISON: None. TECHNIQUE: Bone density was measured using dual-energy x-ray absorptionmetry (DEXA). FINDINGS: AP SPINE L1-L4 BMD 0.976 g/cm2 Young Adult T-Score -1.8 Age Matched Z-Score 0.0. LT FEMUR, TOTAL BMD 0.698 g/cm2 Young Adult T-Score -2.5 Age Matched Z-Score -0.8. LT NECK BMD 0.7 g/cm2 Young Adult T-Score -2.4 Age Matched Z-Score -0.5. RT FEMUR, TOTAL BMD 0.654 g/cm2 Young Adult T-Score -2.8 Age Matched Z-Score -1.1. RT NECK BMD 0.664 g/cm2 Young Adult T-Score -2.7 Age Matched Z-Score -0.8. IMPRESSION: There is low bone density of the spine. There is low bone density of the left hip. There is low bone density of the right hip. The density of the spine has decreased 0.3% since the initial exam on 02/08/2001. The density of the spine decreased 4% since most recent exam on 09/02/2016. The density of the left hip has decreased 6.8% since initial exam on 02/08/2001. The density of the left hip has increased 6.9% since most recent exam on [facility] 09/02/2016 who. The density of the right hip has decreased 15.6 since the initial exam on 02/08/2001. The density of the right hip has decreased 3.3% since the most recent exam on 08/23/2016. FOLLOW-UP: Recommendation for the next bone density exam: 2 years. <Electronically signed by Guy Gilbert > 04/30/21 [id number]
--- NOTE | 2021-04-30 14:38 | REPMRS ---
Patient History The patient states she has not had a clinical breast exam in over a year. Family history of endometrial cancer in sister. 5 lbs unintentional weight gain. 12/06 right arm. 01/06 right arm. Patient states no breast complaints today. Patient has signed MRS History Sheet. Digital Woman Screen Mammo: April 30, 2021 - Exam #: [id number] Bilateral CC and MLO view(s) were taken. Technologist: RT Liliana Prior study comparison: February 06, 2020, bilateral digital woman screen mammo performed at [facility]. November 06, 2018, bilateral digital woman screen mammo performed at [facility]. November 02, 2017, digital woman screen mammo performed at [facility]. FINDINGS: The breast tissue is extremely dense which could obscure a lesion on mammography. The Volpara volumetric breast density category is: D. There is an extremely dense symmetrical pattern of residual fibroglandular tissue. There has been no change in the appearance of the mammogram from the previous studies. There is no interval development of dominant mass, archetectural distortion, or grouped microcalcifications suggestive of malignancy. 3-D tomosynthesis shows no additional findings. Assessment: BI-RADS/ACR category 1 mammogram. Negative Mammogram. Recommendation Routine screening mammogram of both breasts in 1 year (for women over age 40). This patient's [facility] Lifetime Breast Cancer RIsk is estimated at 4.0 %. This mammogram was interpreted with the aid of an FDA-approved computer-aided dectection system. Electronically Signed By: Mika Forte MD 04/30/21 [id number]
== END ==
LOC: M WHC 13:10
PROVIDERS: ATTEND Physician Assistant
DX: Z12.31 Encounter for screening mammogram for malignant neoplasm of breast (principal); M81.0 Age-related osteoporosis without current pathological fracture

== ENCOUNTER → 2021-08-08 | Outpatient (CLI) | payer MEDICARE ==
[2021-08-08 15:58] LABS: ALBUMIN 3.6 GM/DL (3.2-5.2); BILIRUBIN,TOTAL 0.4 MG/DL (0.2-1.0); CALCIUM LEVEL 9.5 MG/DL (8.8-10.2); CREATININE FOR GFR 1.12 MG/DL (0.55-1.30); GLOMERULAR FILTRATION RATE 50.6 (>39); POTASSIUM SERUM 4.2 MEQ/L (3.5-5.1); TOTAL PROTEIN 7.1 GM/DL (6.4-8.2)
== END ==
LOC: M LAB 15:08
PROVIDERS: ATTEND Internal Medicine Endocrinology, Diabetes & Metabolism
DX: M81.0 Age-related osteoporosis without current pathological fracture (principal)

== ENCOUNTER → 2021-11-08 | Outpatient (CLI) | payer MEDICARE ==
[~2021-11-08] MED LIST changes: -PARO37.54 PO; +PARO37.55 PO
[2021-11-08 14:31] LABS: BLOOD UREA NITROGEN 22 MG/DL (7-18); CALCIUM LEVEL 9.5 MG/DL (8.8-10.2); CARBON DIOXIDE LEVEL 31 MEQ/L (21-32); CHLORIDE LEVEL 102 MEQ/L (98-107); CREATININE FOR GFR 0.94 MG/DL (0.55-1.30); GLOMERULAR FILTRATION RATE > 60.0 (>39); GLUCOSE, FASTING 108 MG/DL (70-100); POTASSIUM SERUM 4.9 MEQ/L (3.5-5.1); SODIUM LEVEL 139 MEQ/L (136-145); TOTAL 25(OH) VITAMIN D 29.9 NG/ML (30.0-100.0)
== END ==
LOC: M LAB 13:08
PROVIDERS: ATTEND Internal Medicine Endocrinology, Diabetes & Metabolism
DX: M81.0 Age-related osteoporosis without current pathological fracture (principal)

== ENCOUNTER → 2022-07-30 | Outpatient (CLI) | payer MEDICARE ==
[~2022-07-30] MED LIST changes: -D31000TA2 PO; +VITA100093 PO
[2022-07-30 13:53] LABS: CALCIUM LEVEL 9.6 MG/DL (8.8-10.2); CREATININE FOR GFR 1.05 MG/DL (0.55-1.30); GLOMERULAR FILTRATION RATE 54.4 (>39); POTASSIUM SERUM 4.3 MEQ/L (3.5-5.1)
[2022-08-01 10:11] LABS: TOTAL 25(OH) VITAMIN D 43.3 NG/ML (30.0-100.0)
== END ==
LOC: M LAB 12:37
PROVIDERS: ATTEND Nurse Practitioner Family
DX: M81.0 Age-related osteoporosis without current pathological fracture (principal)

== ENCOUNTER → 2023-01-18 | Outpatient (CLI) | payer MEDICARE, MEDICAID | LOC: M WHC 15:47 | PROVIDERS: ATTEND Physician Assistant | DX: Z12.31 Encounter for screening mammogram for malignant neoplasm of breast (principal) ==

== ENCOUNTER → 2023-02-27 | Outpatient (CLI) | payer MEDICARE, MEDICAID | LOC: M WHC 12:39 | PROVIDERS: ATTEND Physician Assistant | DX: Z12.31 Encounter for screening mammogram for malignant neoplasm of breast (principal) ==

== ENCOUNTER → 2023-10-09 | Outpatient (CLI) | payer MEDICARE, MEDICAID | LOC: M WHC 09:07 | PROVIDERS: ATTEND Nurse Practitioner Family | DX: M81.0 Age-related osteoporosis without current pathological fracture (principal) ==

== ENCOUNTER → 2023-11-29 | Outpatient (CLI) | payer MEDICARE, MEDICAID ==
[2023-11-29 13:07] LABS: CREATININE FOR GFR 0.97 MG/DL (0.55-1.30); GLOMERULAR FILTRATION RATE 59.3 (>39); POTASSIUM SERUM 4.3 MMOL/L (3.5-5.1)
== END ==
LOC: M LAB 11:55
PROVIDERS: ATTEND Nurse Practitioner Family
DX: M81.0 Age-related osteoporosis without current pathological fracture (principal)

== ENCOUNTER → 2024-01-23 | Outpatient (REF) | payer MEDICARE, MEDICAID ==
[2024-01-23 18:23] LABS: HEMATOCRIT 42.3 % (36.0-47.0); HEMOGLOBIN 13.6 g/dl (12.0-15.5); MEAN CORPUSCULAR HEMOGLOBIN 28.8 pg (27.0-33.0); MEAN CORPUSCULAR HGB CONC 32.2 g/dl (32.0-36.5); MEAN CORPUSCULAR VOLUME 89.4 fl (80.0-96.0); PLATELET COUNT, AUTOMATED 289 10^3/uL (150-450); RED BLOOD COUNT 4.73 10^6/uL (4.00-5.40); WHITE BLOOD COUNT 7.1 10^3/uL (4.0-10.0)
[2024-01-23 18:25] LABS: ALBUMIN 3.8 G/DL (3.2-5.2); ALKALINE PHOSPHATASE 79 U/L (46-116); ALT/SGPT 42 U/L (7.0-40); AST/SGOT 23 U/L (<34); BILIRUBIN,TOTAL 0.7 MG/DL (0.3-1.2); BLOOD UREA NITROGEN 19 MG/DL (9-23); CALCIUM LEVEL 9.1 MG/DL (8.3-10.6); CARBON DIOXIDE LEVEL 28 MMOL/L (20-31); CHLORIDE LEVEL 106 MMOL/L (98-107); CHOLESTEROL LEVEL 176 MG/DL (<200); CHOLESTEROL RISK RATIO 2.84 (<5); CREATININE FOR GFR 0.87 MG/DL (0.55-1.30); GLOMERULAR FILTRATION RATE > 60.0 (>39); GLUCOSE, FASTING 77 MG/DL (74-106); HDL CHOLESTEROL 61.8 MG/DL (>40); LDL CHOLESTEROL 95.4 MG/DL (<100); NON-HDL-C 114.2 MG/DL; POTASSIUM SERUM 4.7 MMOL/L (3.5-5.1); SODIUM LEVEL 139 MMOL/L (136-145); TOTAL PROTEIN 6.7 G/DL (5.7-8.2); TRIGLYCERIDES LEVEL 94 MG/DL (<150)
[2024-01-23 18:26] LABS: FREE T4 1.15 NG/DL (0.89-1.76); THYROID STIMULATING HORMONE 1.485 uIU/ML (0.55-4.78)
[2024-01-23 18:27] LABS: TOTAL 25(OH) VITAMIN D 36.9 NG/ML (20.0-100.0)
== END ==
LOC: M SFHCADAM 12:18
PROVIDERS: ATTEND Physician Assistant
DX: E78.00 Pure hypercholesterolemia, unspecified (principal); M81.0 Age-related osteoporosis without current pathological fracture; E55.9 Vitamin D deficiency, unspecified; F41.9 Anxiety disorder, unspecified

== ENCOUNTER → 2024-06-18 | Outpatient (CLI) | payer MEDICARE | LOC: M PLALAB 08:38 | PROVIDERS: ATTEND Nurse Practitioner Family | DX: M81.0 Age-related osteoporosis without current pathological fracture (principal) ==

== ENCOUNTER → 2024-12-23 | Outpatient (CLI) | payer MEDICARE ==
[2024-12-23 14:30] LABS: BLOOD UREA NITROGEN 20 MG/DL (9-23); CARBON DIOXIDE LEVEL 32 MMOL/L (20-31); CHLORIDE LEVEL 104 MMOL/L (98-107); GLOMERULAR FILTRATION RATE > 60.0 (>39); GLUCOSE, FASTING 83 MG/DL (74-106); POTASSIUM SERUM 4.2 MMOL/L (3.5-5.1); SODIUM LEVEL 142 MMOL/L (136-145)
[2024-12-23 14:35] LABS: TOTAL 25(OH) VITAMIN D 32.2 NG/ML (20.0-100.0)
== END ==
LOC: M PLALAB 10:54
PROVIDERS: ATTEND Nurse Practitioner Family
DX: E55.9 Vitamin D deficiency, unspecified (principal)

== ENCOUNTER → 2025-05-21 | Outpatient (CLI) | payer MEDICARE, MEDICAID ==
[2025-05-21 17:14] LABS: BASO # 0.0 10^3/uL (0.0-0.2); BASO % 0.5 % (0.0-1.0); EOS # 0.0 10^3/uL (0.0-0.5); EOS % 0.2 % (0.0-3.0); LYMPH # 2.3 10^3/uL (1.5-5.0); LYMPH % 26.5 % (24.0-44.0); MONO # 0.7 10^3/uL (0.0-0.8); MONO % 8.3 % (2.0-8.0); NEUTROPHILS # 5.5 10^3/uL (1.5-8.5); NEUTROPHILS % 64.3 % (36.0-66.0); PLATELET COUNT, AUTOMATED 298 10^3/uL (150-450)
[2025-05-21 17:47] LABS: IRON (FE) 60.0 UG/DL (50-170); PERCENT SATURATION 18.4 % (13.2-45.0)
[2025-05-21 17:48] LABS: ALT/SGPT 51.0 U/L (7.0-40); AST/SGOT 30.0 U/L (<34); CALCIUM LEVEL 9.6 MG/DL (8.3-10.6); CARBON DIOXIDE LEVEL 26.0 MMOL/L (20-31); CHLORIDE LEVEL 102.0 MMOL/L (98-107); CREATININE FOR GFR 0.82 MG/DL (0.55-1.30); GLOMERULAR FILTRATION RATE 73.2 (>39); POTASSIUM SERUM 4.2 MMOL/L (3.5-5.1); SODIUM LEVEL 140.0 MMOL/L (136-145)
[2025-05-21 17:49] LABS: FREE T4 1.35 NG/DL (0.89-1.76)
== END ==
LOC: M RAD 16:21
PROVIDERS: ATTEND Physician Assistant
DX: R10.30 Lower abdominal pain, unspecified (principal); R42 Dizziness and giddiness; Z79.899 Other long term (current) drug therapy

== ENCOUNTER → 2025-06-18 | Outpatient (CLI) | payer MEDICARE, MEDICAID ==
[2025-06-18 18:34] LABS: CALCIUM LEVEL 9.9 MG/DL (8.3-10.6); CARBON DIOXIDE LEVEL 31.0 MMOL/L (20-31); CHLORIDE LEVEL 101.0 MMOL/L (98-107); CREATININE FOR GFR 0.91 MG/DL (0.55-1.30); GLOMERULAR FILTRATION RATE 64.6 (>39); POTASSIUM SERUM 4.6 MMOL/L (3.5-5.1); SODIUM LEVEL 142.0 MMOL/L (136-145)
== END ==
LOC: M LAB 16:35
PROVIDERS: ATTEND Nurse Practitioner Family
DX: M81.0 Age-related osteoporosis without current pathological fracture (principal)